=== PATIENT | female | born 1965 | race Caucasian/White ===

== ENCOUNTER 2017-02-24 10:49 | Emergency (ER) | payer MEDICAID ==
[2017-02-24] MEDS ORDERED: CIPROFLOXACIN 500 MG TABLET ONE (11:15)
[2017-02-24] MEDS ORDERED: PHENAZOPYRIDINE 200 MG TABLET ONE (11:15)
== END 2017-02-24 11:54 ==
LOC: ED 10:49
DX: N39.0 Urinary tract infection, site not specified (principal); Z88.0 Allergy status to penicillin
CPT/HCPCS: 81001; 87086; 99284

== ENCOUNTER 2017-08-05 13:05 | Inpatient (IN) | payer MEDICAID ==
[~2017-08-05] VITALS: Ht 172.7 cm; Wt 98.0 kg
[~2017-08-05 13:05] MED LIST: ONDA4TAB12 PO; OXYC-306 PO
[2017-08-05] MEDS ORDERED: SODIUM CHLORIDE 0.9% 1,000 ML IV ONE (13:25)
[2017-08-05] MEDS ORDERED: ONDANSETRON 2MG/ML, 2ML IVPush ONE (13:30)
[2017-08-05] MEDS ORDERED: SODIUM CHLORIDE FLUSH 10ML SYR IVF ONE (13:30)
[2017-08-05] MEDS ORDERED: LIDOCAINE 1%, 20ML ONE (13:41)
[2017-08-05 13:47] LABS: HEMATOCRIT 34.5 % (34.6-47.8); HEMOGLOBIN 11.1 g/dL (11.7-16.4); WHITE BLOOD COUNT 13.6 x10^3/uL (3.4-10)
[2017-08-05] MEDS ORDERED: ONDANSETRON 2MG/ML, 2ML ONE ×2 (13:49→14:36)
[2017-08-05 14:00] LABS: ASPARTATE AMINO TRANSFERASE 31 U/L (15-37); BLOOD UREA NITROGEN 16 mg/dL (7-18)
[2017-08-05] MEDS ORDERED: OXYcodone/APAP 10/325MG TABLET PO ONE (15:00)
[2017-08-05] MEDS ORDERED: ENALAPRILAT 1.25 MG/ML, 2ML IVPush PRN (16:00)
[2017-08-05] MEDS ORDERED: POLYETHYLENE GLYCOL 17 GM PACKET PO PRN (16:00)
[2017-08-05] MEDS ORDERED: hydrALAzine 20 MG/ML, 1ML IVPush PRN (16:00)
[2017-08-05] MEDS ORDERED: BISACODYL 10 MG SUPP PR PRN (16:00)
[2017-08-05] MEDS ORDERED: ACETAMINOPHEN 325 MG TABLET PO PRN (16:00)
[2017-08-05 16:14] VITALS: BP 142/88
[2017-08-05 16:20] LABS: CYTOLOGY BODY FLUID RECD INTO PATHOLOGY; CYTOLOGY BODY FLUID SOURCE PERITONEAL FLUID
[2017-08-05] MEDS: CEFTRIAXONE PMX 1GM/50ML 50 ML IV SCH (16:58)
[2017-08-05 19:24] VITALS: BP 123/77
[2017-08-05] MEDS: OXYcodone IR 5MG TABLET PO PRN (20:26)
[2017-08-05] MEDS: ONDANSETRON 2MG/ML, 2ML IVPush PRN (20:26)
[2017-08-06 02:51] VITALS: BP 116/78
[2017-08-06] MEDS: OXYcodone IR 5MG TABLET PO PRN (04:47)
[2017-08-06 05:10] LABS: HEMATOCRIT 31.5 % (34.6-47.8); HEMOGLOBIN 10.2 g/dL (11.7-16.4)
[2017-08-06 05:26] LABS: ASPARTATE AMINO TRANSFERASE 20 U/L (15-37); BLOOD UREA NITROGEN 15 mg/dL (7-18)
[2017-08-06 07:14] VITALS: BP 118/81
[2017-08-06] MEDS: SENNA/DOCUSATE TABLET PO SCH (08:09)
[2017-08-06] MEDS: ONDANSETRON 2MG/ML, 2ML IVPush PRN (08:12)
[2017-08-06] MEDS: morphine SULFATE 10 MG/ML, 1ML IVPush PRN ×4 (08:12→18:28)
[2017-08-06 13:35] VITALS: BP 132/82
[2017-08-06] MEDS: CEFTRIAXONE PMX 1GM/50ML 50 ML IV SCH (16:23)
[2017-08-06 19:18] VITALS: BP 132/77
[2017-08-06] MEDS: HEPARIN 5,000 UNITS/ML, 1ML SQ SCH (20:28)
[2017-08-07] MEDS: morphine SULFATE 10 MG/ML, 1ML IVPush PRN ×4 (01:22→19:41)
[2017-08-07 02:32] VITALS: BP 131/79
[2017-08-07] MEDS: HEPARIN 5,000 UNITS/ML, 1ML SQ SCH ×4 (04:45→19:34)
[2017-08-07 05:39] LABS: HEMATOCRIT 33.8 % (34.6-47.8); HEMOGLOBIN 10.8 g/dL (11.7-16.4); WHITE BLOOD COUNT 11.1 x10^3/uL (3.4-10)
[2017-08-07 05:46] LABS: BLOOD UREA NITROGEN 12 mg/dL (7-18)
[2017-08-07 07:16] VITALS: BP 130/83
[2017-08-07] MEDS: OXYcodone IR 5MG TABLET PO PRN (10:42)
[2017-08-07] MEDS: SENNA/DOCUSATE TABLET PO SCH (10:48)
[2017-08-07 13:58] VITALS: BP 116/76
[2017-08-07] MEDS: CEFTRIAXONE PMX 1GM/50ML 50 ML IV SCH (17:24)
[2017-08-07] MEDS: ONDANSETRON 2MG/ML, 2ML IVPush PRN (19:41)
[2017-08-07 20:19] VITALS: BP 132/85
[2017-08-08] MEDS: morphine SULFATE 10 MG/ML, 1ML IVPush PRN ×6 (00:17→23:37)
[2017-08-08] MEDS: HEPARIN 5,000 UNITS/ML, 1ML SQ SCH ×3 (00:49→20:12)
[2017-08-08 02:27] VITALS: BP 123/89
[2017-08-08 05:13] LABS: ASPARTATE AMINO TRANSFERASE 25 U/L (15-37); BLOOD UREA NITROGEN 12 mg/dL (7-18)
[2017-08-08 07:31] VITALS: BP 142/87
[2017-08-08] MEDS: SENNA/DOCUSATE TABLET PO SCH (10:15)
[2017-08-08 13:26] VITALS: BP 125/78
[2017-08-08] MEDS: CEFTRIAXONE PMX 1GM/50ML 50 ML IV SCH (16:40)
[2017-08-08] MEDS ORDERED: ALBUTEROL/IPRATROPIUM 2.5MG/0.5MG, 3 ML ONE (16:57)
[2017-08-08] MEDS ORDERED: ALBUTEROL/IPRATROPIUM 2.5MG/0.5MG, 3 ML NPPB PRN (17:30)
[2017-08-08 19:53] VITALS: BP 129/82
[2017-08-09 01:57] VITALS: BP 121/81
[2017-08-09] MEDS: morphine SULFATE 10 MG/ML, 1ML IVPush PRN ×7 (02:28→23:26)
[2017-08-09] MEDS: HEPARIN 5,000 UNITS/ML, 1ML SQ SCH ×3 (05:00→21:00)
[2017-08-09 07:41] VITALS: BP 114/89
[2017-08-09] MEDS: SENNA/DOCUSATE TABLET PO SCH (09:41)
[2017-08-09] MEDS: ONDANSETRON 2MG/ML, 2ML IVPush PRN (13:09)
[2017-08-09 13:53] VITALS: BP 116/80
[2017-08-09] MEDS: CEFTRIAXONE PMX 1GM/50ML 50 ML IV SCH (16:21)
[2017-08-09] MEDS: OXYcodone IR 5MG TABLET PO PRN (17:41)
[2017-08-09 20:05] VITALS: BP 113/73
[2017-08-10 02:23] VITALS: BP 117/77
[2017-08-10] MEDS: morphine SULFATE 10 MG/ML, 1ML IVPush PRN ×5 (02:34→16:02)
[2017-08-10] MEDS: HEPARIN 5,000 UNITS/ML, 1ML SQ SCH ×3 (04:56→20:01)
[2017-08-10 07:50] VITALS: BP 133/78
[2017-08-10] MEDS: ONDANSETRON 2MG/ML, 2ML IVPush PRN (09:29)
[2017-08-10] MEDS: SENNA/DOCUSATE TABLET PO SCH (09:30)
[2017-08-10] MEDS ORDERED: ALUMINUM/MAG/SIMETHICONE 30 ML UDC PO ONE (10:30)
[2017-08-10] MEDS: FAMOTIDINE 20 MG TABLET PO SCH ×2 (11:06→19:57)
[2017-08-10 12:42] VITALS: BP 122/81
[2017-08-10] MEDS: CEFTRIAXONE PMX 1GM/50ML 50 ML IV SCH (17:42)
[2017-08-10 19:32] VITALS: BP 126/88
[2017-08-10] MEDS: HYDROmorphone 1 MG/ML, 1ML IV PRN (23:06)
[2017-08-11 01:40] VITALS: BP 118/82
[2017-08-11] MEDS: HYDROmorphone 1 MG/ML, 1ML IV PRN ×3 (02:06→08:20)
[2017-08-11] MEDS: HEPARIN 5,000 UNITS/ML, 1ML SQ SCH ×2 (04:54→13:00)
[2017-08-11 07:56] VITALS: BP 122/83
[2017-08-11] MEDS: FAMOTIDINE 20 MG TABLET PO SCH (08:15)
[2017-08-11] MEDS: SENNA/DOCUSATE TABLET PO SCH (08:15)
[2017-08-11] MEDS: ONDANSETRON 2MG/ML, 2ML IVPush PRN (08:20)
[2017-08-11] MEDS ORDERED: LIDOCAINE 1%, 20ML ONE (09:57)
[2017-08-11 11:20] LABS: CYTOLOGY BODY FLUID RECD INTO PATHOLOGY; CYTOLOGY BODY FLUID SOURCE PERITONEAL FLUID
[2017-08-11] MEDS ORDERED: DOCU-131 PO (13:12)
[2017-08-11] MEDS ORDERED: OXYC-307 PO (13:12)
[2017-08-11] MEDS ORDERED: ONDA4TAB7 PO (13:12)
== END 2017-08-11 13:20 | disposition home or self-care (01) | DRG 754 ==
LOC: ED 13:27 → EDIP 14:59 → 3NW 15:35
PROVIDERS: ADMIT Internal Medicine; ATTEND Internal Medicine
PROC: 0W9G3ZX Drainage of Peritoneal Cavity, Percutaneous Approach, Diagnostic (ICD-10-PCS; principal; 2017-08-05)
PROC: 0W9G3ZX Drainage of Peritoneal Cavity, Percutaneous Approach, Diagnostic (ICD-10-PCS; 2017-08-11)
DX: C53.0 Malignant neoplasm of endocervix (principal); N17.0 Acute kidney failure with tubular necrosis; E44.0 Moderate protein-calorie malnutrition; R18.8 Other ascites; E87.1 Hypo-osmolality and hyponatremia; E86.0 Dehydration; F12.90 Cannabis use, unspecified, uncomplicated; F17.210 Nicotine dependence, cigarettes, uncomplicated; Z51.5 Encounter for palliative care; Z68.32 Body mass index [BMI] 32.0-32.9, adult; Z90.49 Acquired absence of other specified parts of digestive tract; Z88.0 Allergy status to penicillin
CPT/HCPCS: 36415; 49083; 80048; 80053; 80061; 81001; 82042; 83036; 83615; 83690; 83735; 84157; 84439; 84443; 85025; 85610; 87070; 87086; 87205; 88112; 88305; 89051; 93306; 94640; 96374; J0696; J1170; J1644; J2405; J3490; J7620; J2270; J7030

== ENCOUNTER 2017-08-18 12:47 | Emergency (ER) | payer MEDICAID ==
[~2017-08-18] VITALS: Ht 172.7 cm; Wt 98.0 kg
[~2017-08-18 12:47] MED LIST changes: +DOCU-131 PO; +ONDA4TAB7 PO; +OXYC-307 PO
[2017-08-18 13:30] LABS: HEMATOCRIT 36.3 % (34.6-47.8); HEMOGLOBIN 11.8 g/dL (11.7-16.4); WHITE BLOOD COUNT 14.1 x10^3/uL (3.4-10)
[2017-08-18] MEDS ORDERED: SODIUM CHLORIDE FLUSH 10ML SYR IVF ONE (13:30)
[2017-08-18 14:23] LABS: ASPARTATE AMINO TRANSFERASE 39 U/L (15-37); BLOOD UREA NITROGEN 17 mg/dL (7-18)
[2017-08-18] MEDS ORDERED: ONDANSETRON 2MG/ML, 2ML ONE (15:20)
[2017-08-18] MEDS ORDERED: HYDROmorphone 1 MG/ML, 1ML ONE (15:20)
[2017-08-18] MEDS ORDERED: HYDROmorphone 1 MG/ML, 1ML IVPush PRN (15:30)
[2017-08-18] MEDS ORDERED: ONDANSETRON 2MG/ML, 2ML IVPush ONE (15:30)
[2017-08-18 18:16] VITALS: BP 112/85
== END 2017-08-18 18:19 | disposition home or self-care (01) ==
LOC: ED 15:48
DX: C56.9 Malignant neoplasm of unspecified ovary (principal); Z90.49 Acquired absence of other specified parts of digestive tract; Z88.0 Allergy status to penicillin
CPT/HCPCS: 36415; 71010; 76700; 80053; 83690; 85025; 93005; 96374; 96375; 99285; J1170; J2405

== ENCOUNTER 2017-08-30 19:40 | Inpatient (IN) | payer MEDICAID ==
[~2017-08-30] VITALS: Ht 172.7 cm; Wt 102.0 kg
[2017-08-30 20:30] LABS: HEMATOCRIT 32.6 % (34.6-47.8); HEMOGLOBIN 10.7 g/dL (11.7-16.4); WHITE BLOOD COUNT 12.6 x10^3/uL (3.4-10)
[2017-08-30] MEDS ORDERED: ONDANSETRON 2MG/ML, 2ML ONE (20:30)
[2017-08-30] MEDS ORDERED: ONDANSETRON 2MG/ML, 2ML IVPush ONE (20:30)
[2017-08-30] MEDS ORDERED: HYDROmorphone 2 MG/ML, 1ML ONE ×2 (20:30→22:31)
[2017-08-30 20:42] LABS: ASPARTATE AMINO TRANSFERASE 48 U/L (15-37); BLOOD UREA NITROGEN 21 mg/dL (7-18)
[2017-08-30] MEDS: HYDROmorphone 1 MG/ML, 1ML IVPush PRN ×2 (20:52→22:37)
[2017-08-30] MEDS ORDERED: SODIUM CHLORIDE 0.9% 1,000 ML IV ONE (22:26)
[2017-08-30] MEDS ORDERED: HYDROmorphone 1 MG/ML, 1ML IVPush PRN (22:30)
[2017-08-30] MEDS ORDERED: ONDANSETRON 2MG/ML, 2ML IVPush PRN (22:30)
[2017-08-30] MEDS: SODIUM CHLORIDE FLUSH 10ML SYR IVF SCH (23:00)
[2017-08-30] MEDS ORDERED: POLYETHYLENE GLYCOL 17 GM PACKET PO PRN (23:00)
[2017-08-30] MEDS: HEPARIN 5,000 UNITS/ML, 1ML SQ SCH (23:00)
[2017-08-30] MEDS ORDERED: ACETAMINOPHEN 325 MG TABLET PO PRN (23:00)
[2017-08-30] MEDS ORDERED: BISACODYL 10 MG SUPP PR PRN (23:00)
[2017-08-30] MEDS ORDERED: CEFTRIAXONE PMX 1GM/50ML 50 ML ONE (23:08)
[2017-08-30] MEDS: CEFTRIAXONE PMX 1GM/50ML 50 ML IV SCH (23:15)
[2017-08-30 23:26] VITALS: BP 119/88
[2017-08-31] MEDS: morphine SULFATE 10 MG/ML, 1ML IVPush PRN ×3 (00:57→08:45)
[2017-08-31 02:01] VITALS: BP 119/80
[2017-08-31] MEDS: ONDANSETRON 2MG/ML, 2ML IVPush PRN ×4 (03:49→23:24)
[2017-08-31 05:20] LABS: HEMATOCRIT 32.2 % (34.6-47.8); HEMOGLOBIN 10.5 g/dL (11.7-16.4); WHITE BLOOD COUNT 12.8 x10^3/uL (3.4-10)
[2017-08-31 06:01] LABS: ASPARTATE AMINO TRANSFERASE 45 U/L (15-37); BLOOD UREA NITROGEN 22 mg/dL (7-18)
[2017-08-31] MEDS: HEPARIN 5,000 UNITS/ML, 1ML SQ SCH ×3 (07:00→23:00)
[2017-08-31 07:30] VITALS: BP 114/83
[2017-08-31] MEDS: SENNA/DOCUSATE TABLET PO SCH (08:45)
[2017-08-31] MEDS: SODIUM CHLORIDE FLUSH 10ML SYR IVF SCH ×2 (08:45→20:48)
[2017-08-31] MEDS: HYDROmorphone 2 MG/ML, 1ML IV PRN ×3 (11:58→20:48)
[2017-08-31 12:20] VITALS: BP 109/76
[2017-08-31 14:36] VITALS: BP 114/78
[2017-08-31] MEDS ORDERED: MAALOX/HYOSCYAMINE/LIDOCAINE 45 ML BTL PO ONE (17:30)
[2017-08-31 19:43] VITALS: BP 114/84
[2017-08-31] MEDS: CEFTRIAXONE PMX 1GM/50ML 50 ML IV SCH (23:24)
[2017-09-01] MEDS: HYDROmorphone 2 MG/ML, 1ML IV PRN ×6 (00:07→22:30)
[2017-09-01 02:34] VITALS: BP 109/71
[2017-09-01] MEDS ORDERED: PROMETHAZINE 25 MG/ML, 1ML IM PRN (03:30)
[2017-09-01] MEDS: HEPARIN 5,000 UNITS/ML, 1ML SQ SCH ×3 (05:25→22:30)
[2017-09-01] MEDS: ONDANSETRON 2MG/ML, 2ML IVPush PRN ×2 (06:24→14:13)
[2017-09-01 06:40] VITALS: BP 122/88
[2017-09-01] MEDS ORDERED: morphine SULFATE ORAL.CONC 20 MG/ML PO PRN (07:30)
[2017-09-01] MEDS: SENNA/DOCUSATE TABLET PO SCH (07:52)
[2017-09-01] MEDS: PANTOPRAZOLE 40 MG IV IVPush SCH (08:49)
[2017-09-01] MEDS: SODIUM CHLORIDE FLUSH 10ML SYR IVF SCH ×2 (08:49→20:00)
[2017-09-01 13:50] VITALS: BP 135/94
[2017-09-01 20:58] VITALS: BP 114/78
[2017-09-01] MEDS: CEFTRIAXONE PMX 1GM/50ML 50 ML IV SCH (22:29)
[2017-09-02 00:23] VITALS: BP 111/78
[2017-09-02] MEDS: ONDANSETRON 2MG/ML, 2ML IVPush PRN ×3 (00:35→14:43)
[2017-09-02] MEDS: HYDROmorphone 2 MG/ML, 1ML IV PRN ×6 (02:18→22:42)
[2017-09-02 06:50] VITALS: BP 129/86
[2017-09-02] MEDS: HEPARIN 5,000 UNITS/ML, 1ML SQ SCH ×3 (08:18→22:42)
[2017-09-02] MEDS: SENNA/DOCUSATE TABLET PO SCH (08:18)
[2017-09-02] MEDS: SODIUM CHLORIDE FLUSH 10ML SYR IVF SCH ×2 (08:27→22:42)
[2017-09-02] MEDS: PANTOPRAZOLE 40 MG IV IVPush SCH (08:27)
[2017-09-02] MEDS ORDERED: OXYcodone/APAP 10/325MG TABLET PO PRN (09:30)
[2017-09-02 13:37] VITALS: BP 131/82
[2017-09-02 19:31] VITALS: BP 135/90
[2017-09-02] MEDS ORDERED: OSELTAMIVIR 75 MG CAPSULE PO SCH (21:00)
[2017-09-02] MEDS: CEFTRIAXONE PMX 1GM/50ML 50 ML IV SCH (22:42)
[2017-09-03 01:48] VITALS: BP 111/76
[2017-09-03] MEDS: HYDROmorphone 2 MG/ML, 1ML IV PRN ×6 (02:40→22:55)
[2017-09-03] MEDS: HEPARIN 5,000 UNITS/ML, 1ML SQ SCH ×3 (06:45→23:00)
[2017-09-03] MEDS: SENNA/DOCUSATE TABLET PO SCH (09:00)
[2017-09-03] MEDS: SODIUM CHLORIDE FLUSH 10ML SYR IVF SCH ×2 (09:20→19:19)
[2017-09-03] MEDS: PANTOPROZOLE 40MG TABLET PO SCH (09:20)
[2017-09-03 09:37] VITALS: BP 126/88
[2017-09-03 16:18] VITALS: BP 133/79
[2017-09-03 18:40] VITALS: BP 133/80
[2017-09-03] MEDS: ONDANSETRON 2MG/ML, 2ML IVPush PRN (20:35)
[2017-09-04 02:07] VITALS: BP 100/69
[2017-09-04] MEDS: HYDROmorphone 2 MG/ML, 1ML IV PRN ×6 (03:04→23:28)
[2017-09-04] MEDS: HEPARIN 5,000 UNITS/ML, 1ML SQ SCH ×3 (06:16→22:35)
[2017-09-04 06:40] VITALS: BP 103/67
[2017-09-04] MEDS: PANTOPROZOLE 40MG TABLET PO SCH (07:36)
[2017-09-04] MEDS: SODIUM CHLORIDE FLUSH 10ML SYR IVF SCH ×2 (07:46→19:32)
[2017-09-04] MEDS: SENNA/DOCUSATE TABLET PO SCH (09:00)
[2017-09-04 14:00] VITALS: BP 112/67
[2017-09-04 18:56] VITALS: BP 100/69
[2017-09-04] MEDS: ONDANSETRON 2MG/ML, 2ML IVPush PRN (19:34)
[2017-09-05 02:13] VITALS: BP 124/81
[2017-09-05] MEDS: HYDROmorphone 2 MG/ML, 1ML IV PRN ×2 (03:41→07:54)
[2017-09-05] MEDS: HEPARIN 5,000 UNITS/ML, 1ML SQ SCH (05:48)
[2017-09-05 07:33] VITALS: BP 93/61
[2017-09-05] MEDS: SODIUM CHLORIDE FLUSH 10ML SYR IVF SCH (07:54)
[2017-09-05] MEDS: SENNA/DOCUSATE TABLET PO SCH (07:54)
[2017-09-05] MEDS: PANTOPROZOLE 40MG TABLET PO SCH (07:54)
== END 2017-09-05 11:00 | disposition home or self-care (01) | DRG 754 ==
LOC: ED 20:37 → EDIP 22:26 → 4NOR 23:23 → 3NW 08-31 13:19
PROVIDERS: ADMIT Hospitalist; ATTEND Hospitalist
DX: C53.0 Malignant neoplasm of endocervix (principal); E43 Unspecified severe protein-calorie malnutrition; R18.8 Other ascites; E87.1 Hypo-osmolality and hyponatremia; N13.30 Unspecified hydronephrosis; K76.0 Fatty (change of) liver, not elsewhere classified; D50.9 Iron deficiency anemia, unspecified; F12.90 Cannabis use, unspecified, uncomplicated; D72.829 Elevated white blood cell count, unspecified; Z68.34 Body mass index [BMI] 34.0-34.9, adult; I34.0 Nonrheumatic mitral (valve) insufficiency; Z51.5 Encounter for palliative care; Z80.1 Family history of malignant neoplasm of trachea, bronchus and lung; Z85.43 Personal history of malignant neoplasm of ovary; Z87.891 Personal history of nicotine dependence; Z90.49 Acquired absence of other specified parts of digestive tract; Z88.0 Allergy status to penicillin
CPT/HCPCS: 36415; 76700; 80053; 81001; 85025; 86480; 87086; 96374; 96375; 96376; J0696; J1170; J2405; J2550; C9113; J2270; J7030